=== PATIENT | female | born 1965 | race American Indian/Alaskan Native ===

== ENCOUNTER 2019-03-04 18:23 | Emergency (ER) | payer SELFPAY ==
[2019-03-04] MEDS ORDERED: TORADOL IM ONE (18:56)
[2019-03-04] MEDS ORDERED: PERCOCET 5/325 PO ONE (18:56)
--- NOTE | 2019-03-04 18:58 | Emergency Department Report ---
ED Lower Extremity HPI - General Chief Complaint: Extremity Injury, Lower Stated Complaint: LEFT KNEE PAIN FROM FALL Time Seen by Provider: 03/04/19 18:34 Source: patient, family, EMS (ems notes not available at time of chart dictation), RN notes reviewed Mode of arrival: Stretcher Limitations: Physical Limitation - History of Present Illness Initial Comments: This patient communicates in sign language. The patient indicates that she would like her daughter to translate for her. Primary care DrLarry: Jonathan palomares Past medical history: Obesity, hypertension, hard of hearing This is a 53-year-old female who was brought to the hospital by emergency medical services after mechanical fall. Patient walking downstairs, and reports slipping, and landed on her left thigh, left knee. She did not hit her head or neck or back. The patient makes no complaint of headache, neck pain, chest pain, back pain, abdominal pain, upper extremity pain. She has no right lower extremity pain. Her pain is in her left thigh and left knee. The pain increases with palpation and range of motion. It decreases with rest and position. It does not radiate anywhere. She endorses no numbness or change in sensation. She endorses no new or different weakness. MD Complaint: thigh injury, knee injury, leg injury -: Sudden, hour(s) Injury: Thigh: Left, Leg: Left, Knee: Left Place: home Improves With: rest Worsens With: movement, palpation Context: fall, direct blow - Related Data Previous Rx's Medication Instructions Recorded Last Taken Type Acetaminophen [Non-Aspirin Extra 500 mg PO Q6HR PRN #30 tablet 03/04/19 Unknown Rx Strength] Ibuprofen [Motrin] 600 mg PO Q8H PRN #30 tablet 03/04/19 Unknown Rx ED Review of Systems ROS: Stated complaint: LEFT KNEE PAIN FROM FALL Other details as noted in HPI Constitutional: denies: fever Eyes: denies: eye discharge Respiratory: denies: cough Cardiovascular: denies: chest pain Gastrointestinal: denies: abdominal pain Musculoskeletal: arthralgia, myalgia Neurological: denies: weakness, numbness, paresthesias ED Past Medical Hx - Medications Home Medications: Home Medications Medication Instructions Recorded Confirmed Last Taken Type Acetaminophen [Non-Aspirin Extra 500 mg PO Q6HR PRN #30 tablet 03/04/19 Unknown Rx Strength] Ibuprofen [Motrin] 600 mg PO Q8H PRN #30 tablet 03/04/19 Unknown Rx ED Physical Exam - General Limitations: Physical Limitation General appearance: alert, anxious, obese - Head Head exam: Present: atraumatic, normocephalic - Eye Eye exam: Present: normal appearance, EOMI. Absent: nystagmus - ENT ENT exam: Present: normal exam, normal orophraynx, mucous membranes moist, normal external ear exam - Neck Neck exam: Present: normal inspection, full ROM. Absent: tenderness, meningismus - Respiratory Respiratory exam: Present: normal lung sounds bilaterally. Absent: respiratory distress - Cardiovascular Cardiovascular Exam: Present: regular rate, normal rhythm, normal heart sounds. Absent: bradycardia, tachycardia, irregular rhythm, systolic murmur, diastolic murmur, rubs, gallop - GI/Abdominal GI/Abdominal exam: Present: soft. Absent: distended, tenderness, guarding, rebound, rigid - Extremities Exam Extremities exam: Present: normal inspection, full ROM (full range of motion in bilateral upper and right lower extremities. Ankle range of motion intact in the left lower extremity. Range of motion in the hip and left knee limited secondary to pain. Partial range of motion is achieved), tenderness (there is left anterior lateral thigh tenderness. There is left knee tenderness in the lateral, medial joint line, and anterior patella. The compartments are soft. The pelvis is stable. Bilateral upper extremities unremarkable. Right lower extremity unremarkable. There is no ankle or foot tenderness. Dorsi and plant arflexion intact bilaterally.) - Back Exam Back exam: Present: normal inspection, full ROM. Absent: tenderness, CVA tenderness (R), CVA tenderness (L), paraspinal tenderness, vertebral tenderness - Neurological Exam Neurological exam: Present: alert, other (Extraocular movements intact. Tongue midline. No facial droop. Facial sensation intact to light touch in the V1, V2, V3 distribution bilaterally. 5 and 5 strength in 4 extremities.. Sensation is intact to light touch in 4 extremities.) - Psychiatric Psychiatric exam: Present: anxious - Skin Skin exam: Present: warm, dry, intact, normal color, other (during skin examination, chaperoned by ER clinical psychology teacher Ludmila). Absent: rash ED Course Vital Signs 03/04/19 03/04/19 18:30 19:49 Temperature 98.0 F Pulse Rate 92 H 79 Respiratory 18 16 Rate Blood Pressure 156/73 Blood Pressure 156/73 173/84 [Right] O2 Sat by Pulse 100 99 Oximetry - Reevaluation(s) Reevaluation #1: 03/04/19 19:31 Differential diagnosis, including not limited to: Sprain, strain, fracture, dislocation, contusion Assessment and plan: 53-year-old female status post reported simple mechanical fall, with reproducible left knee pain and thigh pain. He is distally neurovascularly intact. Does not appear to have other injuries on her primary and secondary survey. We will treat the patient's pain, obtain plain films of the pelvis, left femur, left knee, and left lower extremity, not including the distal ankle or foot. We will reassess after initial data points. Reevaluation #2: 03/04/19 20:19 x rays negative for acute disease patient is improved. Discussed findings with patient and family. Counseled to expect to be sore over the next few days. Patient indicates she feels improved. We will discharge. Reevaluation #3: 03/04/19 20:34 As a courtesy, we contacted the [facility], and I have discussed the patient's case with Dr. Carvajal, who is the [facility] record dating physician. They will reach out to patient or her nurse with the patient's outpatient follow-up appointment. ED Lower Extremity MDM - Lab Data Vital Signs 03/04/19 03/04/19 18:30 19:49 Pulse Rate 92 H Respiratory 18 16 Rate Blood Pressure 156/73 Blood Pressure 156/73 [Right] O2 Sat by Pulse 100 Oximetry - Radiology Data Radiology results: image reviewed interpreted by me: x ray pelvis, femur, knee, tibia fibula show DJD. Negative for acute disease. Critical care attestation.: If time is entered above; I have spent that time in minutes in the direct care of this critically ill patient, excluding procedure time. ED Disposition Clinical Impression: Left leg pain, History of fall Disposition: DC-01 TO HOME OR SELFCARE Is pt being admited?: No Does the pt Need Aspirin: No Condition: Good Additional Instructions: Pain typically gets worse or forgets better after mechanical fall. Rest, avoid heavy lifting, and avoid strenuous physical activities. Take the pain medicat ion as needed/directed. Follow up with her primary care doctor within the next 7-10 days. X-rays were read by the ER physician as negative for acute disease, however, occasionally, formal radiology interpretation is different than initial ER interpretation. Please have your primary care doctor contact medical records department to obtain formal final radiology reports. Please return to the emergency room right away with new, worsening or different symptoms, or symptoms not present on the initial emergency room evaluation. Prescriptions: Ibuprofen [Motrin] 600 mg PO Q8H PRN #30 tablet PRN Reason: Pain Acetaminophen [Non-Aspirin Extra Strength] 500 mg PO Q6HR PRN #30 tablet PRN Reason: Pain , Severe (7-10) Referrals: MARILYN SALDAÑA MD [Primary Care Provider] - 3-5 Days [facility] [Provider Group] - 3-5 Days Forms: Work/School Release Form(ED)
--- NOTE | 2019-03-04 20:45 | XRay Report ---
PROCEDURE: XR TIBIA FIBULA 2V LT TECHNIQUE: Tibia fibula 2 views HISTORY: fall lef leg pain COMPARISONS: FINDINGS: No fracture identified. No dislocation seen. Joint spaces are within normal limits. IMPRESSION: Negative no acute abnormality. This document is electronically signed by Douglas Quesada MD., March 04 2019 08:42:06 PM ET
--- NOTE | 2019-03-04 20:48 | XRay Report ---
PROCEDURE: XR PELVIS 1-2V TECHNIQUE: AP pelvis HISTORY: fall left leg pain COMPARISONS: FINDINGS: No acute fracture identified. No dislocation seen. SI joints and pubic symphysis appear unremarkable. No evidence for hip dislocation IMPRESSION: Negative AP pelvis. This document is electronically signed by Douglas Quesada MD., March 04 2019 08:46:13 PM ET
--- NOTE | 2019-03-04 21:01 | XRay Report ---
PROCEDURE: XR FEMUR 2+V LT TECHNIQUE: Femur 2 views HISTORY: fall left leg pain COMPARISONS: FINDINGS: No fracture identified. No dislocation seen. Joint spaces are within normal limits. No radiopaque for eign bodies are observed. IMPRESSION: Negative no acute abnormality identified. This document is electronically signed by Douglas Quesada MD., March 04 2019 09:00:02 PM ET
--- NOTE | 2019-03-04 21:07 | XRay Report ---
PROCEDURE: XR KNEE 3V LT TECHNIQUE: Left knee 3 views HISTORY: fall left leg pain COMPARISONS: FINDINGS: No acute fracture identified. No dislocation seen. There is mild degenerative changes small marginal medial femoral osteophyte and mild joint space narrowing. No evidence for joint effusion IMPRESSION: Mild degenerative changes Otherwise negative study. This document is electronically signed by Douglas Quesada MD., March 04 2019 09:05:55 PM ET
[2019-03-04 21:36] VITALS: BP 141/74
== END 2019-03-04 21:21 | disposition home or self-care (01) ==
LOC: ED 18:23
DX: M25.562 Pain in left knee (principal); M79.652 Pain in left thigh; Z91.81 History of falling
CPT/HCPCS: 72170; 73552; 73562; 73590; 96372; 99284; J1885